=== PATIENT | female | born 1995 | race African-American/Black ===

== ENCOUNTER 2018-02-22 08:14 | Emergency (ER) | payer OTHER, SELFPAY ==
[2018-02-22 09:01] LABS: #Basophils 0.1 thou/uL (0.0-0.2); #Eosinphils 0.1 thou/uL (0.0-0.7); #Lymphocytes 1.6 thou/uL (1.20-3.40); #Monocytes 0.7 thou/uL (0.11-0.59); #Neutrophils 6.7 thou/uL (1.40-6.50); %Basophils 0.6 % (0.0-1.0); %Eosinophils 0.9 % (0.0-10.0); %Monocytes 7.7 % (0.0-10.0); %Neutrophils 72.8 % (42.0-75.0); Hemoglobin 13.2 g/dL (12.0-16.0); Mean Corpuscular HGB CONC 36.2 g/dL (32.0-36.0); Mean Corpuscular Hemoglobin 30.2 pg (27.0-31.0); Mean Corpuscular Volume 83.5 fl (81.0-99.0); Mean Platelet Volume 7.8 fL (7.4-10.4); Platelet Count 239 thou/uL (130-400); RBC Distribution Width 12.5 % (11.5-14.5); Red Blood Cell (RBC) Count 4.36 mill/uL (4.20-5.40); White Blood Cell (WBC) Count 9.1 thou/uL (4.8-10.8)
--- NOTE | 2018-02-22 10:00 | ULT ---
ULTRASOUND EARLY OBSTETRICAL: DATE: 02/22/18. HISTORY: A 22-year-old female with 1st trimester vaginal bleeding. FINDINGS: Uterus: 10 x 6.5 x 6.5 cm. Right ovary: 4.5 x 3 x 2.5 cm. Left ovary: 3 x 2 x 2 cm. Blood flow is demonstrated into both ovaries by Doppler. 1.5 x 1.5 x 1 cm dominant follicle in right ovary. This may or may not be a collapsed corpus luteum cyst. Intrauterine gestational sac containing an embryonic pole with crown-rump length of 1.2 cm, correspon ding to 7w 2d gestational age. Yolk sac is visualized adjacent to it. heart rate 165 b.p.m. No evidence of subchorionic hemorrhage. No free fluid in the cul-de-sac. IMPRESSION: 1. Live 1st trimester intrauterine gestation estimated to be 7 weeks 4 days gestational age. 2. No evidence of complications. POS: [facility]
[2018-02-22 10:57] LABS: Bilirubin Negative (Negative); Blood, Urine Negative (Negative); Clarity CLEAR (Clear); Glucose, Urine (Dipstick) Negative (Negative); Leukocyte Moderate (Negative); Nitrite Negative (Negative); Protein, Urine (Dipstick) Negative (Neg-Trace); Specific Gravity, Urine 1.021 (1.002-1.036); Urobilinogen 0.2 mg/dL (0.2-1.0); pH, Urine 6.5 (5.0-9.0)
[2018-02-22 10:59] LABS: Bacteria/HPF Rare-Few HPF (None Seen); Hyaline Casts/LPF 0-3 HYALINE CAST LPF (0-3 Hyaline); Pathc Cast-AUWi Flag 0.14 (0-2.49); RBC/HPF 0-3 HPF (0-3)
[2018-02-24 00:42] LABS: Chlamydia by PCR DETECTED (NotDetected); GC by PCR Not Detected (NotDetected)
== END 2018-02-22 11:45 | disposition home or self-care (01) ==
LOC: ERS 08:14
DX: O20.0 Threatened abortion (principal); Z3A.01 Less than 8 weeks gestation of pregnancy
CPT/HCPCS: 36415; 76815; 81003; 81015; 84702; 85025; 86900; 86901; 87086; 87480; 87491; 87510; 87591; 87660

== ENCOUNTER 2018-08-03 16:01 | Inpatient (IN) | payer OTHER ==
[2018-08-03] MEDS ORDERED: Betamet Acet/Betamet Na Ph 30 MG/5 ML VIAL ONE (16:59)
[2018-08-03] MEDS ORDERED: Magnesium Sulfate 20 gm/500 ml 20 GM/500 ML BAG ONE (16:59)
[2018-08-03] MEDS ORDERED: Acetaminophen 500 MG TAB PO PRN (17:05)
[2018-08-03] MEDS ORDERED: Ondansetron HCl/PF 4 MG/2 ML Vial IVP PRN (17:05)
[2018-08-03] MEDS ORDERED: Promethazine HCl 25 MG/ML VIAL IM PRN (17:05)
[2018-08-03] MEDS ORDERED: Ibuprofen 800 MG TAB PO PRN (17:05)
[2018-08-03] MEDS ORDERED: NS / Oxytocin 40 units/1000ml 1,000 ML IV PRN (17:05)
[2018-08-03] MEDS ORDERED: Calcium Gluc 4.6 MEQ/10 ML (100 MG/ML) SLOW IVP PRN (17:05)
[2018-08-03] MEDS ORDERED: Lidocaine 1% (PF) 30 ML VIAL SC PRN (17:05)
[2018-08-03] MEDS ORDERED: Magnesium Sulfate 20 GM/WATER 500 ML BAG IVPB SCH (17:15)
[2018-08-03] MEDS ORDERED: Azithromycin 500 MG in Sodium Chloride 0.9% 250 ML 250 ML IVPB SCH (17:15)
[2018-08-03] MEDS ORDERED: Magnesium Sulfate 20 gm/500 ml 20 GM/500 ML BAG IVPB SCH (17:15)
[2018-08-03] MEDS ORDERED: Lactated Ringer's 1,000 ML IV SCH (17:15)
--- NOTE | 2018-08-03 17:19 | PDOC.LDHP ---
Labor and Delivery H&P Chief complaint: contractions HPI: This is a 23 y/o F @ 31.2 WGA by 16.0 wk US who presents due to ctx. She reports the ctx started about 3 hours prior to arrival and have gotten progressively more painful. They are about every 3-4 minutes and a 8/10 in pain. She denies any vaginal bleeding, vaginal d/c, LOF, dysuria, H/A, vision changes, RUQ pain, swelling. She reports good movement. Her PCP is at [facility], but she reports that she has only seen him once during her . She has not received any progesterone during this . Current gestational age (weeks): 31 (31w2d) Due date: 10/03/18 Dating criteria: second trimester ultrasound Grav: 5 Para: 4 ([id number]) OB History Details: 1. Term 2. Term 3. Term 4. at 34 wks Current complications: other (Poor care during this due to pt only going to one appt and getting one US.) Abnormal US findings: Yes (Complete previa on 16 and 18 wk US) Past Medical History: None Current medications: pre-bree vitamins Previous surgical history: none Social history: none - Physical Exam Vital signs reviewed and normal: yes General: NAD Heart: RRR Lungs: CTAB Abdomen: gravid Extremeties: no edema FHT: category 1, variability present [place] contractions every: 2-4 minutes - Vaginal Exam cm dilated: 2 Effacement: 50% Station: -3 - OB Labs Blood type: unknown RH: unknown Antibody Screen: unknown HIV: unknown RPR: unknown HEPSAg: unknown 1 hour GCT: unknown GBS: unknown - Assessment L&D Assessment: labor 23 y/o F @ 31w2d by 16w0d US presents in PTL h/o delivery and poor f/u SVE 2/50/-3 painful ctx q2-4 minutes - Plan Plan: admit to L&D -: -Magnesium for neuroprotection -Ampicillin and Azithromycin for GBS ppx with GBS status unknown and labor -Celestone 12mg IM x2 doses 24 hours apart -Monitor FHT -Check GBS -UDS -Ultrasound for placenta location, position, and growth -Check all labs due to no lab results -FFN not performed due to intercourse within last 24 hours <Megan Ulrich - Last Filed: 08/03/18 17:16> <Donis Clement - Last Filed: 08/03/18 18:22> Allergies/Adverse Reactions: Allergies Allergy/AdvReac Type Severity Reaction Status Date / Time No Known Allergies Allergy Verified 06/09/16 12:10 Attending Addendum - Attending Addendum Date/Time: 08/03/18 559 I personally evaluated the patient and discussed the management with Dr. Ulrich. 23 yo BF with h/o delivery here with regular UCs and cervical dilation c/w PTL. Limited PNC at [facility]. Will start steroids for FLM and Mg for neuroprotection along with ABX for GBS and observe closely. I agree with the History, Examination, Assessment and Plan documented above. <Donis Clement - Last Filed: 08/03/18 18:22>
[2018-08-03 17:21] VITALS: BMI 23.7
[2018-08-03 17:29] LABS: Hemoglobin 12.4 g/dL (12.0-16.0); Mean Corpuscular HGB CONC 35.6 g/dL (32.0-36.0); Mean Corpuscular Hemoglobin 28.4 pg (27.0-31.0); Mean Corpuscular Volume 79.8 fL (78.0-98.0); Mean Platelet Volume 7.3 fL (7.4-10.4); Platelet Count 209 thou/uL (130-400); RBC Distribution Width 12.3 % (11.5-14.5); Red Blood Cell (RBC) Count 4.34 mill/uL (4.20-5.40); White Blood Cell (WBC) Count 13.2 thou/uL (4.8-10.8)
[2018-08-03] MEDS ORDERED: Butorphanol Tartrate 1 MG/ML VIAL SLOW IVP PRN (17:36)
[2018-08-03] MEDS: Lactated Ringer's 1,000 ML IV SCH (17:39)
[2018-08-03] MEDS: Ampicillin 2 GM in Sodium Chloride 0.9% 100 ML IVPB SCH ×2 (17:45→23:52)
--- NOTE | 2018-08-03 17:50 | PDOC.EVN ---
Event Note - Event Note Event Note: Watched ultrasound Preliminary results: No previa - placenta R lateral Vertex position Growth consistent with stated gestational age Awaiting lab results at this time. Continue current management <Megan Ulrich - Last Filed: 08/03/18 17:48> Attending Addendum - Attending Addendum Date/Time: 08/03/181822 I personally evaluated the patient and discussed the management with Dr. Ulrich. USG shows vtx, biometry c/w with known dating criteria. No evidence of placenta previa. I agree with the Assessment and Plan documented above. <Donis Clement - Last Filed: 08/03/18 18:25>
[2018-08-03 17:51] LABS: Amphetamine Detected (NotDetected); Barbiturates Screen Not Detected (NotDetected); Benzodiazepine Screen Not Detected (NotDetected); Cocaine Metabolite Screen Not Detected (NotDetected); Medtox Control Line Valid? VALID (VALID); Medtox Reader # READER 4; Methadone Not Detected (NotDetected); Methamphetamine Detected (NotDetected); Opiate Screen Not Detected (NotDetected); Oxycodone Screen Not Detected (NotDetected); Phencyclidine (PCP) Not Detected (NotDetected); THC/Cannabinoid Screen Not Detected (NotDetected); Tricyclic Screen Not Detected (NotDetected)
[2018-08-03 17:53] LABS: HBSAg Index 0.25 S/CO (0-0.99); HIV (1/2) Antibody/Antigen Non-Reactive (NonReactive); HIV 1/2 INDEX 0.09 S/CO (<1.00); Hep B Surf Ag Non-Reactive S/CO (NonReactive); Syphilis Antibody Nonreactive (Nonreactive); Syphilis Antibody Index 0.06 S/CO (<1.00 Non-Reactive)
[2018-08-03 17:59] LABS: Bilirubin Negative (Negative); Blood, Urine Negative (Negative); Clarity CLEAR (Clear); Glucose, Urine (Dipstick) Negative (Negative); Leukocyte Negative (Negative); Nitrite Negative (Negative); Protein, Urine (Dipstick) Negative (Neg-Trace)
[2018-08-03 18:01] LABS: Bacteria/HPF None Seen HPF (None Seen); Hyaline Casts/LPF 0-3 HYALINE CAST LPF (0-3 Hyaline); Pathc Cast-AUWi Flag 0.14 (0-2.49); RBC/HPF 0-3 HPF (0-3); Squamous Epithelial 0-3 HPF (0-3); WBC/HPF None Seen HPF (0-3)
[2018-08-03] MEDS ORDERED: Fentanyl 100 MCG/2 ML VIAL SLOW IVP SCH (18:45)
[2018-08-03] MEDS ORDERED: Promethazine HCl 25 MG/ML VIAL IM/IV SCH (18:45)
--- NOTE | 2018-08-03 18:48 | PDOC.LDPN ---
Labor & Delivery Progress Note - Subjective Subjective: painful contractions - Objective Vital signs reviewed and normal: yes General: NAD Uterine fundus: palpable contractions SVE: by Nurse @ 1840 Dilation: 3 Effacement: 50% Station: -1 FHT: category 1, variability present [place] contractions every: 2 minutes - Assessment (1) labor in third trimester Code(s): O60.03 - LABOR WITHOUT DELIVERY, THIRD TRIMESTER Current Visit: Yes Status: Acute Qualifiers: Fetus number: single or unspecified fetus Comment: 23 y/o @ 33w2d with concern for labor SVE 50/-1 @ 1840 - changed from prior check Ctx q2min Patient having significant pain, not relieved with stadol -Give 25mcg fentanyl and 12.5mg phenergan -Continue to monitor -LR @ 125 -Continue mag and abx -s/p one dose of celestone Plan: continue plan of care <Megan Ulrich - Last Filed: 08/03/18 18:45> Attending Addendum - Attending Addendum Date/Time: 08/03/181943 I personally evaluated the patient and discussed the management with Dr. Ulrich. I agree with the Assessment and Plan documented above. <Donis Clement - Last Filed: 08/03/18 19:44>
--- NOTE | 2018-08-03 19:27 | ULT ---
LIMITED OBSTETRICAL ULTRASOUND: 08/03/18 HISTORY: Evaluate placental location, position, and growth. TECHNIQUE: Multiplanar de la torre scale sonographic imaging of the gravid uterus obtained. FINDINGS: There is a single intrauterine gestation present demonstrating a vertex presentation. The placenta is located to the right of midline with no evidence for abruption or previa. A single in trauterine gestation is noted with a heart rate of 157 beats per minute. Amniotic fluid index is 12.5 cm. BIOMETRY: BPD 7.9 cm 31 weeks, 4 days HC 28.7 cm 31 weeks, 4 days AC 26.7 cm 30 weeks, 6 days FL 5.8 cm 30 weeks, 1 day Average age based on ultrasound is 31 weeks, 0 days. Estimated date of delivery is 10/05/18. Estimated weight is 1634 grams plus/minus 242 grams. IMPRESSION: Single intrauterine gestation as detailed above. POS: [facility]
--- NOTE | 2018-08-03 19:42 | PDOC.EVN ---
Event Note - Event Note Event Note: Labs reviewed: UDS positive for methamphetamines and amphetamines Hemagram, HIV, RPR, UA, Hep B all WNL. <Megan Ulrich - Last Filed: 08/03/18 19:40> Attending Addendum - Attending Addendum Date/Time: 08/03/181944 I have personally discussed with , noted. <Donis Clement - Last Filed: 08/03/18 19:46>
[2018-08-03] MEDS ORDERED: Meperidine HCl/PF 25 MG/ML VIAL SLOW IVP PRN (22:11)
[2018-08-03] MEDS ORDERED: Promethazine HCl 25 MG/ML VIAL SLOW IVP SCH (22:15)
--- NOTE | 2018-08-03 22:15 | PDOC.EVN ---
Event Note - Event Note Event Note: Patient complaining of ctx pain 06/07. Having ctx q1-2 minutes Patient declines any stadol or fentanyl because they did not help with her BP and they made her feel too loopy. SVE @ 2049 unchanged at /-1 -Will give demerol and phenergan <Megan Ulrich - Last Filed: 08/03/18 22:13> Attending Addendum - Attending Addendum Date/Time: 08/03/18 3815 I personally evaluated the patient and discussed the management with Dr. Ulrich. I agree with the Assessment and Plan. <Donis Clement - Last Filed: 08/03/18 23:43>
--- NOTE | 2018-08-04 00:15 | PDOC.EVN ---
Event Note - Event Note Event Note: Was called by nurse due to patient's complaints about pain. Patient reports that her pain has not been relieved at all with stadol, demerol , or fentanyl. The patient and her family are frustrated due to her lack of pain relief and are requesting an epidural. Due to refractory pain will start epidural in patient to allow better pain relief and allow her to rest. She has continued emilio q2min <Megan Ulrich - Last Filed: 08/04/18 00:13> Attending Addendum - Attending Addendum Date/Time: 08/04/18 0151 I personally evaluated the patient and discussed the management with Dr. Ulrich. I agree with the Assessment and Plan documented above. <Donis Clement - Last Filed: 08/04/18 01:52>
[2018-08-04] MEDS ORDERED: DISCONTINUE ALL PREVIOUS NARCOTICS FS SCH (00:30)
[2018-08-04] MEDS: Bupivacaine 0.5% 20 ML, fentaNYL Citrate/PF 400 MCG in Sodium Chloride 0.9% 72 ML EPIDURAL SCH ×4 (01:00→23:15)
[2018-08-04] MEDS ORDERED: ePHEDrine/0.9% NaCl/PF SYRINGE 50 mg/10 ml SLOW IVP PRN (01:04)
[2018-08-04] MEDS ORDERED: Promethazine HCl 25 MG/ML VIAL IM PRN (01:04)
[2018-08-04] MEDS ORDERED: Lactated Ringer's 500 ML IV PRN (01:04)
[2018-08-04] MEDS ORDERED: Naloxone HCl 0.4 mg/ml Vial IVP PRN ×2 (01:04)
[2018-08-04] MEDS ORDERED: Acetaminophen 325 MG TAB PO PRN (01:04)
[2018-08-04] MEDS ORDERED: Ondansetron HCl/PF 4 MG/2 ML Vial IVP PRN (01:04)
[2018-08-04] MEDS ORDERED: diphenhydrAMINE 50 MG/ML VIAL IVP PRN (01:04)
[2018-08-04] MEDS ORDERED: Eucerin (Mineral Oil/Petrolatum,White) 30 gm Jar TOP PRN (01:04)
[2018-08-04] MEDS: Lactated Ringer's 1,000 ML IV SCH ×3 (01:14→18:33)
[2018-08-04] MEDS ORDERED: fentaNYL Citrate/PF 400 MCG, Bupivacaine 0.5% 20 ML in Sodium Chloride 0.9% 72 ML EPIDURAL SCH (01:15)
[2018-08-04] MEDS ORDERED: Communication Order-Pharmacy FS SCH (01:15)
[2018-08-04] MEDS: Betamet Acet/Betamet Na Ph 30 MG/5 ML VIAL IM SCH ×3 (05:08→18:32)
[2018-08-04] MEDS: Ampicillin 2 GM in Sodium Chloride 0.9% 100 ML IVPB SCH ×4 (06:11→23:28)
[2018-08-04] MEDS ORDERED: Magnesium Sulfate 20 gm/500 ml 20 GM/500 ML BAG IVPB SCH (07:13)
--- NOTE | 2018-08-04 07:15 | PDOC.EVN ---
Event Note - Event Note Event Note: Comfortable with epidural. VSS AF SVE now /0 vtx, BOWI. UCs q 2-4 min. 2nd dose of steroids given at 5a. Will decrease Mg to 1 gm/hr and observe.
--- NOTE | 2018-08-04 09:52 | PDOC.EVN ---
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 Presumed EGA 31 weeks 2 days. Sono with EFW 1634 grams, vertex, normal fluid. HX reviewed with Dr Clement I have out in a NICU consult for threatened PTL. Ordered vag GC/chl. CHETNA in place for pain control. If no further labor after 24 hours observation, will remove epidural and do qureshi expectanat management. In L&D for now. Pos UDS reviewed
--- NOTE | 2018-08-04 14:08 | PDOC.EVN ---
Event Note - Event Note Event Note: 1400: L&D: Still wiith contractions on toco..palpable. Last exam was at 0930 this AM=3-4. WE will recheck CX now
--- NOTE | 2018-08-04 15:26 | PDOC.EVN ---
Event Note - Event Note Event Note: L&D: LDR1 Patient seen at bedside Contractions are still every 1-2 minutes, but FHR still Cat 1...no Vag Bleed or ROM Cannot give terb as maternal HR at 120. CHETNA to adjust/rebolus by anesthesia. I do not suspect abruption currently but contraction pattern likely due to laboring process. If pulse decrease under 100, consider Terb.
[2018-08-04] MEDS ORDERED: Lidocaine HCl/Epinephrine 5 ML AMPUL IJ ONE (15:42)
--- NOTE | 2018-08-04 22:36 | PDOC.EVN ---
Event Note - Event Note Event Note: Exam now 4cm.
[2018-08-05] MEDS: Lactated Ringer's 1,000 ML IV SCH (01:29)
--- NOTE | 2018-08-05 05:23 | PDOC.EVN ---
Event Note - Event Note Event Note: Will stop Mag so4 as steroids now given and no cervical change. Will stop epidural despite contractions if no change at 0800.
[2018-08-05] MEDS: Ampicillin 2 GM in Sodium Chloride 0.9% 100 ML IVPB SCH ×2 (07:16→12:46)
--- NOTE | 2018-08-05 07:24 | PDOC.LDPN ---
Labor & Delivery Progress Note - Subjective Subjective: comfortable - Objective Vital signs reviewed and normal: yes General: resting Uterine fundus: non tender SVE: 4:44 Dilation: 4 Effacement: 75% Station: -1 FHT: category 1, variability present [place] contractions every: q3 min - Assessment (1) labor in third trimester Code(s): O60.03 - LABOR WITHOUT DELIVERY, THIRD TRIMESTER Current Visit: Yes Status: Acute Qualifiers: Fetus number: single or unspecified fetus Comment: 23 y/o @ 33w4d with concern for labor SVE /-1 @ 04:44 on 08/05 Ctx q3min Continue to monitor LR @ 125 D/C'd MgSO4 s/p two doses of celestone Stop epidural despite contractions if no change at 0800 (2) Cannabis abuse Code(s): F12.10 - CANNABIS ABUSE, UNCOMPLICATED Current Visit: No Status: Acute Plan: continue plan of care
[2018-08-05] MEDS: Bupivacaine 0.5% 20 ML, fentaNYL Citrate/PF 400 MCG in Sodium Chloride 0.9% 72 ML EPIDURAL SCH ×2 (07:35→15:03)
--- NOTE | 2018-08-05 11:16 | PDOC.LDPN ---
Labor & Delivery Progress Note - Subjective Subjective: comfortable - Objective Abnormal vital signs: HR 109 General: NAD, resting Uterine fundus: non tender SVE: 11:10 by Nurse Dilation: 5 Effacement: 75% Station: -2 FHT: category 1, variability present [place] contractions every: q1-2 min - Assessment (1) labor in third trimester Code(s): O60.03 - LABOR WITHOUT DELIVERY, THIRD TRIMESTER Current Visit: Yes Status: Acute Qualifiers: Fetus number: single or unspecified fetus Comment: 23 y/o @ 33w4d presents with labor SVE 5/75/-2 @ 11:10 on 08/05 by nurse Ctx q1-2min Continue to monitor LR @ 125 D/C'd MgSO4 s/p two doses of celestone Restarted epidural; patient painfully emilio q1-2 minutes Expectant management (2) Cannabis abuse Code(s): F12.10 - CANNABIS ABUSE, UNCOMPLICATED Current Visit: No Status: Acute Plan: continue plan of care
[2018-08-05] MEDS ORDERED: Bupivacaine/Epinephrine 0.25% 30 ML VIAL ONE (12:00)
[2018-08-05] MEDS ORDERED: Dextrose 5%-Lactated Ringers 1,000 ML IV SCH (12:15)
--- NOTE | 2018-08-05 12:29 | PDOC.EVN ---
Event Note - Event Note Event Note: Tachysystole noted at approximately 12:10 AM. Went in to evaluate patient. She was resting comfortably on her left side. Her abdomen was not firm to palpation. No vaginal bleeding. HR 114 BP 129/82 RR 16 Cervical check /-[address] De La Paz Will order urgent limited OB u/s to evaluate placenta. Concern for abruption. Will change LR to D5 LR @ 125 ml/hr Will order CBC and fibrinogen
[2018-08-05 12:39] LABS: #Monocytes 0.9 thou/uL (0.11-0.59); #Neutrophils 8.3 thou/uL (1.40-6.50); %Basophils 0.2 % (0.0-1.0); %Eosinophils 0.3 % (0.0-10.0); %Lymphocytes 17.7 % (21.0-51.0); %Monocytes 7.7 % (0.0-10.0); %Neutrophils 74.2 % (42.0-75.0); Hemoglobin 10.8 g/dL (12.0-16.0); Mean Corpuscular HGB CONC 35.5 g/dL (32.0-36.0); Mean Corpuscular Hemoglobin 28.5 pg (27.0-31.0); Mean Corpuscular Volume 80.5 fL (78.0-98.0); Mean Platelet Volume 6.7 fL (7.4-10.4); Platelet Count 188 thou/uL (130-400); RBC Distribution Width 12.2 % (11.5-14.5); Red Blood Cell (RBC) Count 3.79 mill/uL (4.20-5.40); White Blood Cell (WBC) Count 11.1 thou/uL (4.8-10.8)
--- NOTE | 2018-08-05 12:56 | PDOC.EVN ---
Event Note - Event Note Event Note: U/S did not show any obvious placental hemorrhage or hematoma Fibrinogen low in at 288 CBC stable Will order KB test
[2018-08-05 13:56] LABS: ALT (SGPT) 9 U/L (8-55); AST (SGOT) 22 U/L (5-34); Albumin 3.4 g/dL (3.5-5.0); Alkaline Phosphatase 80 U/L (40-150); Anion Gap 12 mmol/L (10-20); BUN (Urea Nitrogen) 8 mg/dL (7.0-18.7); Bilirubin, Total 0.4 mg/dL (0.2-1.2); Calc. Creatinine Clearance 153 mL/min (70-130); Calcium 8.4 mg/dL (7.8-10.44); Carbon Dioxide 22 mmol/L (22-29); Chloride 106 mmol/L (98-107); Estimated GFR-MDRD Greater than 90; Glucose 95 mg/dL (70-105); Potassium 3.9 mmol/L (3.5-5.1); Protein, Total 6.4 g/dL (6.0-8.3); Sodium 136 mmol/L (136-145)
--- NOTE | 2018-08-05 14:08 | PDOC.EVN ---
Event Note - Event Note Event Note: CMP nml. Still awaiting KB test.
--- NOTE | 2018-08-05 14:21 | ULT ---
LIMITED OBSTETRICAL ULTRASOUND: DATE: 08/05/2018. COMPARISON: 08/03/2018. History Evaluate placenta, evaluate for placental abruption. TECHNIQUE: Multiplanar de la torre scale sonographic imaging of the gravid uterus obtained. FINDINGS: There is a single intrauterine gestation present demonstrating a vertex presentation. heart ra te is 124 b.p.m. The placenta is located posteriorly. No evidence for previa or abruption is noted. The Doppler sign al intensity at the junction of the placenta and the uterus appears normal. Amniotic fluid index is 8.7 cm. IMPRESSION: Single intrauterine gestation demonstrating a heart rate of 124 b.p.m. Amniotic fluid index is 8.7 cm. No sonographic evidence of placental abruption is apparent POS: [facility]
[2018-08-05 22:51] LABS: Chlamydia by PCR Not Detected (NotDetected); GC by PCR Not Detected (NotDetected)
--- NOTE | 2018-08-06 07:43 | PRG ---
DATE OF SERVICE: 08/05/2018 HISTORY OF PRESENT ILLNESS: The patient is a 23-year-old female with a history of one delivery at 34 weeks who was admitted to the hospital on 08/03/2018 for labor after having intercourse. The patient was 2 cm and 50%, dilated at that time. The patient has undergone 48 hours of magnesium for neuro protection and tocolysis during steroid administration. This morning , magnesium was turned off and cervical check per nursing staff progressed from 4, recorded last night to 4, then 5 this morning. The patient continued to have contractions. Epidural, which initially was discontinued was restarted as persistent reporting painful contractions. Upon my cervical check at noon, the patient was 3 cm, 75% effaced, -2 station, posterior. Cervix is firm and did not feel excessively labored. To the course of the day, the patient continued to have visible uterine contractions every 2-3 minutes; however, appeared very unusual and their pattern more triangular persistently this evening around 5:00 , I talked to the patient who has become very irritated and irritable about the lack of clarity and what is occurring as the patient has been given various different cervical checks. I have explained to the patient that a big picture is over the last 2 days she has not had her baby, which was a good thing that she appears to be not changing her cervix significantly. Given the overall picture during the course of the day various testing was performed to evaluate for various concerns. One, with her contractions during a period of time every 1 minute without cervical change, there was some concern perhaps the patient was developing an abruption that was concealed. Repeat ultrasound of placenta did not show any obvious subplacental hematomas. Placenta was homogeneous in its appearance and was unremarkable. Her KUB is pending. She did have fibrinogen of 288, which was lower than I had expected, and had a CMP all within normal limits. Sodium of 136, potassium 3.9, BUN of 8, creatinine 0.6, calcium of 8.4, AST of 22, ALT of 9. Her GBS culture is also finalized as negative. During the course of the day, the patient was allowed to eat. IV fluids were changed to D5 in effort to provide energy and nutrients to the patient as she has been on basically ice and water for the last 2 days. This evening again the patient is reporting significant frustration with the lack of progress in her labor process. We did make it clear to her that at this point, there is no indication for me to augment her labor. We did offer a plan to turn off the epidural and reassess the locations of her pain. Pt stating she will be discharging herself. She has called her mom who has come. We reviewed the hospital stay and reviewed the plan I have recommended (to d/c epidural , stay the night in and if no change by morning pt can be discharged home. Mother deferred the decision to the patient who has again stated she will be going home. She did agree to have her cervix checked again. sve /- 3. Epidural was pulled. Pt left AMA. MONICO
== END 2018-08-05 19:40 | disposition left against medical advice (07) | DRG 832 ==
LOC: L&D/OP 16:01 → L&D 17:15
PROVIDERS: ADMIT Obstetrics & Gynecology; ATTEND Obstetrics & Gynecology
DX: O60.03 Preterm labor without delivery, third trimester (principal); O99.323 Drug use complicating pregnancy, third trimester; F12.10 Cannabis abuse, uncomplicated; Z3A.31 31 weeks gestation of pregnancy
CPT/HCPCS: 36415; 51702; 76815; 80053; 80306; 81001; 85025; 85027; 85384; 85460; 86762; 86780; 86850; 86900; 86901; 87081; 87340; 87389; 87491; 87591; 99285; J0290; J0456; J0595; J0702; J2175; J2550; J3010; J3475; J3490; J7050

== ENCOUNTER 2018-08-29 19:05 | Day surgery (SDC) | payer OTHER ==
[2018-08-29 19:42] VITALS: BMI 31.9
[2018-08-29 20:32] LABS: Amnisure Internal Control QC ACCEPTABLE (ACCEPTABLE)
[2018-08-29 20:36] LABS: Amnisure Test No Membranes Rupture (No Rupture)
--- NOTE | 2018-08-30 07:40 | PRG ---
DATE OF SERVICE: 08/29/2018 OB ER ENCOUNTER PRIMARY OB: Dr. Víctor White. CHIEF COMPLAINT: Leakage of fluid. HISTORY OF PRESENT ILLNESS: Patient is a 23-year-old G5, P4 female with an intrauterine at 34 weeks and 3 days who presents today with complaints of leakage of fluid. Patient reports that satinder sanchez woke up from a nap and found that she was wet and thought she did peed on herself. She went to go take a shower and felt that she was still leaking fluid and came for evaluation. Patient reports antonio t she has been having some cramping and reports continued ligament pain persistent from her previous admission about 4 weeks ago. Patient denies fever, fall, headache, chest pain, shortness of breath, nausea, vomiting. She reports diarrhea. Denies constipation. Denies vaginal bleeding, denies urina ry urgency or frequency. PAST MEDICAL HISTORY: Negative. FAMILY HISTORY: Negative. SOCIAL HISTORY: Denies drug, alcohol, or tobacco use. OB HISTORY: She has a history of delivery at 34 weeks and 3 term deliveries. OB LABS: Unavailable at time of dictation. REVIEW OF SYSTEMS: Per HPI. PHYSICAL EXAMINATION: VITAL SIGNS: Blood pressure 131/85, heart rate of 88, respiratory rate 16, satting 96% on room air, temperature 98.7. GENERAL: She appears to be in no acute distress. She is alert and oriented, cooperative and pleasan t to interact with. HEENT: Normocephalic, atraumatic. CHEST: Clear to auscultation bilaterally. CARDIOVASCULAR: Heart has regular rate and rhythm. ABDOMEN: Gravid and soft and nontender. EXTREMITIES: Nontender, nonedematous. PELVIC: Vulva is without masses, lesions, or erythema. Vagina is moist with minimal discharge. Cer vix is visibly closed on cervical exam per nursing staff. She is 2, 50, and -3 station, which is unc hanged from 4 weeks ago. heart tracing demonstrates a fetus with a baseline in the 130s with moderate long-term variabil ity, positive accelerations, no decelerations. Patient showing irritability on the monitor. CARPENTRY FOREMAN-3 wa s collected and found to be positive for bacterial vaginosis. AmniSure is negative. ASSESSMENT AND PLAN: Patient is a 23-year-old female with an intrauterine at 34 weeks and 3 days, who was found not to have any evidence of leakage of fluid. Patient has been given results of evaluation for possible rupture of membranes and given her reassurance that there is no evidence a t this time. Patient is comfortable being discharged to home without the results of her CARPENTRY FOREMAN-3 testing . We will contact her. She will contact us once those results become available. The patient has an appointment with Dr. White on the or 03 of September, which we have encouraged that she keep.
--- NOTE | 2018-08-30 08:20 | PDOC.EVN ---
Event Note - Event Note Event Note: 08/30/18 Lab check post discharge: I contacted the patient via the phone number on file. VP3 result of BV reviewed with her. She requested RX. I called in a 7 day RX of flagyl 500mg o BID X 7 days to [facility] [address]
== END 2018-08-29 21:05 ==
LOC: L&D/OP 19:05
PROVIDERS: ATTEND Obstetrics & Gynecology
DX: O42.913 Preterm premature rupture of membranes, unspecified as to length of time between rupture and onset of labor, third trimester (principal); Z3A.34 34 weeks gestation of pregnancy
CPT/HCPCS: 84112; 87480; 87510; 87660; 99285

== ENCOUNTER 2018-09-13 08:07 | Inpatient (IN) | payer OTHER ==
--- NOTE | 2018-09-13 09:02 | PDOC.LDHP ---
Labor and Delivery H&P HPI: Patient of Dr White Time of eval 0900 on 09/13/18 Triage CC: contractiions, clear dsch (not like ROM), headache for 1 wwek, diarrhea HPI: 23 yo at 36 weeks 2 days with possible contractions since 0200, every 5-10 minutes or so. No VB, no LOF but states some "clear dsch". Good FM. Also with one week HX "[place]", no visual changes, no RUQ pain, some nausea and diarrhea. No recent trauma. Sees [facility], but had another OB provider prior to that. HX one delivery at 34 weeks, the others she stated were 36 weeks, but record states early term. ROS: good FM, no VB, no recet trauma. Other ROS as per HPI Current gestational age (weeks): 36 (2 days) Dating criteria: last menstrual period Grav: 5 Para: 4 OB History Details: All SVDs, one documented at 34 weeks, 2015 Current complications: none Abnormal US findings: No Current medications: pre-bree vitamins, other ([place] flagyl for BV earlier in the month) Allergies/Adverse Reactions: Allergies Allergy/AdvReac Type Severity Reaction Status Date / Time No Known Allergies Allergy Verified 09/13/18 08:45 Social history: none - Physical Exam Vital signs reviewed and normal: yes (125/80 93pulse 18RR Temp 99.2) Heart: RRR Lungs: CTAB Abdomen: gravid (size appropriate) Extremeties: no edema FHT: category 1 (Baseline 120s, accels), variability present [place] contractions every: every 3-6 - Assessment Threatened PTL at 36 weeks 2 days (late ) also with nonspecific GI sxs, normotensive currently. Sxs possible discomforts of in addition to contractions. Unknown GBS status. - Plan Plan: observation in L&D, other (1. Check CBC and CMP 2. Labor obs 3. HX not C/ W ROM but I will screen with first, and if positive...will sterile spec (no gross evidence LOF); 4. If suspect early PTL will give steroids as under 36 weeks and 6 days)
[2018-09-13] MEDS ORDERED: Betamet Acet/Betamet Na Ph 30 MG/5 ML VIAL ONE (09:24)
--- NOTE | 2018-09-13 09:31 | PDOC.EVN ---
Event Note - Event Note Event Note: Additioanl HX info and Physical exam: I reviewed past visits here. Pt was positive for ampetamines/methampetamines Aug 03, 2018. No GBS on file here but [facility]'s office will send result via fax. HX steroid administration previously at 31 weeks. EXAM by me: /-1/Ceph/intact Plan: Due to regular CTX every 3 minutes or so, and 4cm with HX PTL in past (and HX drug use), I will admit for PTL: 1. NICU consult 2. Get sono EFW 3. Check GBS result 4. Tox screen 5. case management 6. Steroids, per ACOG: repeat course of steroids indicated if EGA is less than 34 weeks and initial course was greater than 14 days...patient is greater than 34 weeks so rescue not indicated. 7. [facility] aware of his admission
[2018-09-13] MEDS ORDERED: NS / Oxytocin 40 units/1000ml 1,000 ML IV PRN (09:33)
[2018-09-13] MEDS ORDERED: Butorphanol Tartrate 1 MG/ML VIAL SLOW IVP PRN (09:33)
[2018-09-13] MEDS ORDERED: Ondansetron PF 4 MG/2 ML Vial IVP PRN ×3 (09:33→23:28)
[2018-09-13] MEDS ORDERED: Promethazine HCl 25 MG/ML VIAL IM PRN ×3 (09:33→23:28)
[2018-09-13] MEDS ORDERED: Lidocaine 1% (PF) 30 ML VIAL SC PRN (09:33)
[2018-09-13] MEDS ORDERED: Ibuprofen 800 MG TAB PO PRN (09:33)
[2018-09-13] MEDS ORDERED: HYDROcodone/Acetaminophen 5/325 mg Tablet PO PRN ×4 (09:33→23:28)
--- NOTE | 2018-09-13 09:54 | PDOC.EVN ---
Event Note - Event Note Event Note: Steroid use: Patient did receive a redose of celestone IM 12 mg after I left the bedside as we had discussed it in the room. This was prior to my note documenting the ACOG bulletin that redose is mainly indicated for EGA less than 34 weeks. Nonetheless , this redose may serve as "booster" as under 36 weeks and 6 days. U tox ordered as well for HX. I do not suspect she is on any illicit substances at this time.
[2018-09-13] MEDS ORDERED: Betamet Acet/Betamet Na Ph 30 MG/5 ML VIAL IM SCH (10:00)
[2018-09-13] MEDS: Lactated Ringer's 1,000 ML IV SCH (10:05)
[2018-09-13] MEDS ORDERED: Butorphanol Tartrate 1 MG/ML VIAL ONE (10:15)
[2018-09-13 10:40] LABS: #Basophils 0.1 thou/uL (0.0-0.2); #Eosinphils 0.1 thou/uL (0.0-0.7); #Lymphocytes 2.4 thou/uL (1.20-3.40); #Monocytes 0.6 thou/uL (0.11-0.59); #Neutrophils 8.2 thou/uL (1.40-6.50); %Basophils 0.4 % (0.0-1.0); %Eosinophils 0.5 % (0.0-10.0); %Lymphocytes 21.1 % (21.0-51.0); %Monocytes 5.5 % (0.0-10.0); %Neutrophils 72.5 % (42.0-75.0); Hemoglobin 12.4 g/dL (12.0-16.0); Mean Corpuscular HGB CONC 35.3 g/dL (32.0-36.0); Mean Corpuscular Hemoglobin 27.3 pg (27.0-31.0); Mean Corpuscular Volume 77.2 fL (78.0-98.0); Mean Platelet Volume 7.9 fL (7.4-10.4); Platelet Count 202 thou/uL (130-400); RBC Distribution Width 12.8 % (11.5-14.5); Red Blood Cell (RBC) Count 4.54 mill/uL (4.20-5.40); White Blood Cell (WBC) Count 11.4 thou/uL (4.8-10.8)
[2018-09-13 10:56] LABS: ALT (SGPT) 12 U/L (8-55); AST (SGOT) 20 U/L (5-34); Albumin 3.8 g/dL (3.5-5.0); Alkaline Phosphatase 166 U/L (40-150); Anion Gap 14 mmol/L (10-20); BUN (Urea Nitrogen) 6 mg/dL (7.0-18.7); Bilirubin, Total 0.6 mg/dL (0.2-1.2); Calc. Creatinine Clearance 180 mL/min (70-130); Carbon Dioxide 20 mmol/L (22-29); Chloride 105 mmol/L (98-107); Estimated GFR-MDRD Greater than 90; Globulin 3.4 g/dL (2.4-3.5); Glucose 74 mg/dL (70-105); Protein, Total 7.2 g/dL (6.0-8.3); Sodium 135 mmol/L (136-145)
[2018-09-13 11:14] LABS: Syphilis Antibody Nonreactive (Nonreactive); Syphilis Antibody Index 0.05 S/CO (<1.00 Non-Reactive)
[2018-09-13 11:15] LABS: HBSAg Index 0.21 S/CO (0-0.99); HIV (1/2) Antibody/Antigen Non-Reactive (NonReactive); HIV 1/2 INDEX 0.06 S/CO (<1.00); Hep B Surf Ag Non-Reactive S/CO (NonReactive)
[2018-09-13 11:20] LABS: Amphetamine Not Detected (NotDetected); Barbiturates Screen Not Detected (NotDetected); Benzodiazepine Screen Not Detected (NotDetected); Cocaine Metabolite Screen Not Detected (NotDetected); Medtox Control Line Valid? VALID (VALID); Medtox Reader # READER 1; Methadone Not Detected (NotDetected); Methamphetamine Not Detected (NotDetected); Opiate Screen Not Detected (NotDetected); Oxycodone Screen Not Detected (NotDetected); Phencyclidine (PCP) Not Detected (NotDetected); THC/Cannabinoid Screen Not Detected (NotDetected); Tricyclic Screen Not Detected (NotDetected)
--- NOTE | 2018-09-13 12:04 | ULT ---
ULTRASOUND OBSTETRICAL COMPLETE: DATE: 09/13/2018. HISTORY: A 23-year-old female with labor in third trimester at 36 weeks . FINDINGS: number: gotti. lie: cephalic. Maternal cervix: obscured. Placenta: fundal, anterior, and right lateral, with a small posterior component. No placenta previa. Amniotic fluid volume: 15 cm. heart rate: 119 b.p.m. The following anatomy is visualized, with no evidence of anomalies: Head, stomach, kidneys, and urinary bladder. There rest of the anatomy was not evaluated. biometry: Head circumference (HC): 32.6 cm 37 w 0 d Biparietal diameter (BPD): 9.1 cm 37 w 1 d Abdominal circumference (AC): 33.1 cm 37 w 0 d Femur length (FL): 7.3 cm 37 w 2 d Average ultrasound age (AUA): 37 w 1 d Estimated date of delivery (SHANEL): 10/03/2018. Last menstrual period (LMP): 12/31/2017. Gestational age by LMP: 36 w 4 d. Estimated weight (EFW): 3,111 g +/- 460 g (6 lb 14 oz +/- 16 oz). IMPRESSION: 1. Live third trimester intrauterine gestation. 2. Estimated gestational age of 37 weeks, 1 day. 3. lie cephalic. 4. Maternal cervix not visualized, obscured. 5. Amniotic fluid index of 15 cm. JN R POS: [facility]
[2018-09-13] MEDS ORDERED: Fentanyl 4 mcg/Bup 0.1% Cadd 100 ML ONE ×2 (12:30→18:52)
[2018-09-13] MEDS ORDERED: Fentanyl 100 MCG/2 ML VIAL ONE (12:48)
[2018-09-13] MEDS ORDERED: Fentanyl 100 MCG/2 ML VIAL EPIDURAL SCH (13:00)
[2018-09-13] MEDS ORDERED: Naloxone HCl 0.4 mg/ml Vial IVP PRN ×2 (13:36)
[2018-09-13] MEDS ORDERED: diphenhydrAMINE 50 MG/ML VIAL IVP PRN (13:36)
[2018-09-13] MEDS ORDERED: Eucerin (Mineral Oil/Petrolatum,White) 30 gm Jar TOP PRN (13:36)
[2018-09-13] MEDS ORDERED: Lactated Ringer's 500 ML IV PRN (13:36)
[2018-09-13] MEDS ORDERED: ePHEDrine/0.9% NaCl/PF SYRINGE 50 mg/10 ml SLOW IVP PRN (13:36)
[2018-09-13] MEDS ORDERED: Acetaminophen 325 MG TAB PO PRN (13:36)
[2018-09-13] MEDS ORDERED: Fentanyl 4 mcg/Bupivacaine 0.1% Cassette 100 ML EPIDURAL SCH (13:45)
[2018-09-13] MEDS ORDERED: Communication Order-Pharmacy FS SCH (13:45)
[2018-09-13] MEDS ORDERED: Bupivacaine 0.25% HCL 30 ML VIAL ONE (15:00)
--- NOTE | 2018-09-13 15:04 | PDOC.EVN ---
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 Last check was 5 cm. CHETNA in use.
[2018-09-13] MEDS ORDERED: NS w/ Oxytocin 10 units 500 ML ONE (18:23)
[2018-09-13] MEDS ORDERED: Milk Of Magnesia 30 ML UDCUP PO PRN (23:28)
[2018-09-13] MEDS ORDERED: Zolpidem Tartrate 5 MG TAB PO PRN (23:28)
[2018-09-13] MEDS ORDERED: Misoprostol 200 MCG TAB VAG PRN (23:28)
[2018-09-13] MEDS ORDERED: Bisacodyl 10 MG SUPP PR PRN (23:28)
[2018-09-13] MEDS ORDERED: Benzocaine/Menthol 20-0.5% 60 ML CAN TOP PRN (23:28)
[2018-09-13] MEDS ORDERED: NS / Oxytocin 40 units/1000ml 1,000 ML IV SCH (23:28)
[2018-09-13] MEDS ORDERED: diphenhydrAMINE 25 MG CAP PO PRN (23:28)
[2018-09-13] MEDS ORDERED: Preparation H Ointment 28 GM TUBE PR PRN (23:28)
[2018-09-13] MEDS ORDERED: Lanolin Ointment 7 GM TUBE TOP PRN (23:28)
[2018-09-13] MEDS ORDERED: Ibuprofen 800 MG TAB PO SCH (23:45)
[2018-09-13] MEDS ORDERED: Docusate Calcium (SURFAK) 240 MG CAP PO SCH (23:45)
[2018-09-14] MEDS: Lactated Ringer's 1,000 ML IV SCH (02:31)
[2018-09-14 06:22] LABS: Hemoglobin 9.8 g/dL (12.0-16.0); Mean Corpuscular HGB CONC 34.8 g/dL (32.0-36.0); Mean Corpuscular Volume 77.6 fL (78.0-98.0); Mean Platelet Volume 8.1 fL (7.4-10.4); Platelet Count 175 thou/uL (130-400); RBC Distribution Width 12.7 % (11.5-14.5); Red Blood Cell (RBC) Count 3.63 mill/uL (4.20-5.40); White Blood Cell (WBC) Count 16.2 thou/uL (4.8-10.8)
[2018-09-14] MEDS ORDERED: Adacel (T-DAP) 0.5 ML VIAL IM ONE (09:00)
[2018-09-14] MEDS ORDERED: Varicella virus, LIVE 0.5 ML VIAL SC ONE (09:00)
[2018-09-14] MEDS ORDERED: Measles/Mumps/Rubella 10 MCG/0.5 ML VIAL SC ONE (09:00)
[2018-09-14] MEDS ORDERED: Docusate Calcium (SURFAK) 240 MG CAP ONE (09:01)
[2018-09-14] MEDS ORDERED: Prenatal Vitamin 1 TAB ONE (09:01)
[2018-09-14] MEDS ORDERED: Ferrous Sulfate 325 MG TAB ONE (09:17)
[2018-09-14] MEDS: Docusate Calcium (SURFAK) 240 MG CAP PO SCH ×2 (09:30→21:48)
[2018-09-14] MEDS: Prenatal Vitamin 1 TAB PO SCH (09:30)
[2018-09-14] MEDS: Ibuprofen 800 MG TAB PO SCH ×3 (14:01→21:51)
[2018-09-15] MEDS: Ibuprofen 800 MG TAB PO SCH (06:16)
[2018-09-15] MEDS: Prenatal Vitamin 1 TAB PO SCH (09:26)
[2018-09-15] MEDS: Docusate Calcium (SURFAK) 240 MG CAP PO SCH (09:26)
[2018-09-15 10:17] VITALS: BP 108/53; TEMP 98.6
--- NOTE | 2018-09-18 00:02 | DN ---
DATE OF PROCEDURE: 09/17/2018 PREOPERATIVE DIAGNOSIS: Intrauterine at 36 weeks and 4 days with labor. POSTOPERATIVE DIAGNOSIS: Intrauterine at 36 weeks and 4 days with labor. PROCEDURE: Spontaneous vaginal delivery over intact perineum. FINDINGS: Viable male weighing 3065 grams or 6 pounds 12 ounces, Apgars 8 and 9. Quantitativ e blood loss 94 grams. COMPLICATIONS: None. DETAILS OF THE PROCEDURE: The patient presented to [facility] where she was a dmitted to the Labor and Delivery service. The patient underwent a normal and uneventful labor with normal cervical dilatation until she was found to be completely dilated. She was then allowed to pus h and was able to bring the baby down and delivered the baby in a vertex presentation without difficu lties. Once the head delivered in occiput anterior position, the shoulders followed spontaneously al barbara with the rest of the baby's body. Once out the baby's mouth and nose were bulb suctioned. The c ord was clamped and cut and baby was handed to waiting attendants. Cord blood was collected. Gentle Fundal massage was performed and the placenta delivered intact without problems. Hemostasis was ass ured. Quantitative blood loss was calculated. Inspection of the cervix, vaginal vault, and perineum did not reveal any lacerations needing suturing. Once again, hemostasis was within normal limits an d the patient was allowed to recover in the labor and delivery room. Baby went to nursery.
== END 2018-09-15 12:25 | disposition home or self-care (01) | DRG 807 ==
LOC: L&D/OP 08:07 → L&D 13:37 → 3SW 23:59
PROVIDERS: ADMIT Obstetrics & Gynecology; ATTEND Obstetrics & Gynecology
PROC: 10E0XZZ Delivery of Products of Conception, External Approach (ICD-10-PCS; principal; 2018-09-13)
PROC: 10907ZC Drainage of Amniotic Fluid, Therapeutic from Products of Conception, Via Natural or Artificial Opening (ICD-10-PCS; 2018-09-13)
DX: O60.03 Preterm labor without delivery, third trimester (principal); Z37.0 Single live birth; Z3A.36 36 weeks gestation of pregnancy; Z87.59 Personal history of other complications of pregnancy, childbirth and the puerperium; O69.81X0 Labor and delivery complicated by cord around neck, without compression, not applicable or unspecified
CPT/HCPCS: 36415; 51702; 76805; 80053; 80306; 85025; 85027; 86780; 86850; 86900; 86901; 87340; 87389; 99285; J0595; J0702; J2405; J3010; S0020

== ENCOUNTER 2019-01-04 08:08 | Emergency (ER) | payer OTHER ==
[2019-01-04 08:59] LABS: Bilirubin Negative (Negative); Blood, Urine Large (Negative); Clarity TURBID (Clear); Glucose, Urine (Dipstick) Negative (Negative); Leukocyte Large (Negative); Nitrite Positive (Negative); Protein, Urine (Dipstick) 100 mg/dL (Neg-Trace); Specific Gravity, Urine 1.012 (1.002-1.036)
[2019-01-04 09:00] LABS: Pregnancy Test - Urine (BHCG) Negative (Negative); Pregu Control Background? CLEAR/WHITE (CLR/WHITE); Pregu Control Bar Appear? YES (CONTROL BAR); Specific Gravity 1.012 (1.002-1.036)
[2019-01-04 09:02] LABS: Bacteria/HPF None Seen HPF (None Seen); Hyaline Casts/LPF 4-6 HYALINE CAST LPF (0-3 Hyaline); Pathc Cast-AUWi Flag 1.89 (0-2.49)
[2019-01-04 09:04] LABS: Yeast-AUWi Flag 656.9 (0-25.0)
[2019-01-04 09:13] LABS: RBC/HPF 21-50 HPF (0-3)
[2019-01-04 09:14] LABS: Squamous Epithelial 0-3 HPF (0-3); WBC/HPF 21-50 HPF (0-3); Yeast-All Forms None Seen HPF (None Seen)
== END 2019-01-04 08:45 | disposition home or self-care (01) ==
LOC: ERS 08:08
DX: N30.00 Acute cystitis without hematuria (principal)
CPT/HCPCS: 81003; 81015; 81025; 87077; 87086; 87186; 99283

== ENCOUNTER 2019-09-21 02:04 | Inpatient (IN) | payer MEDICAID, OTHER, SELFPAY ==
[2019-09-21 02:47] VITALS: BMI 27.4
[2019-09-21] MEDS ORDERED: hydrALAZINE 20 MG/ML VIAL SLOW IVP PRN ×2 (02:49)
--- NOTE | 2019-09-21 02:53 | PDOC.LDHP ---
Labor and Delivery H&P Chief complaint: contractions, abdominal pain HPI: 24YO w/ no care who presents to L&D with a CC of abdominal pain that has been ongoing since about 2100 the day [employer]. Reports only finding out she was via a home UPT ~1.5 months ago as she has been bleeding monthly all of this . Reports she did the same thing with her last . States "LMP" was August 11 or & lasted ~3-4 days. Reports that last night while she was sitting at home she started to have diffuse intermittent upper & lower abdominal pain that she describes as feeling like contractions. Tried to rest but they persisted and continued to get stronger so she came to L&D for further evaluation. Endorses regular movement. Denies any associated fever but reports subjective chills as well as N/V/D. Reports ~3 episodes of emesis tonight and states she has had diarrhea with every BM for the last week. No known sick contacts/exposures. No vaginal bleeding/ d/c or LOF. No melena, hematochezia, mucoid, or foul-smelling stools. Grav: 6 Para: 5 ([id number]) OB History Details: #1-2--> term SVDs w/ GDM #3--> uncomplicated #4--> @ 34 WGA 2/2 labor #5--> @ ~36.4 WGA 2/2 labor Current complications: other (no PNC) Abnormal US findings: No Past Medical History: none Current medications: pre-bree vitamins Previous surgical history: none Allergies/Adverse Reactions: Allergies Allergy/AdvReac Type Severity Reaction Status Date / Time No Known Allergies Allergy Verified 09/13/18 08:45 Social history: none - Physical Exam Abnormal vital signs: HR 104 but BP & other vitals WNLs General: resting, breathing through contractions, other (mild distress 2/2 pain) Heart: RRR Lungs: CTAB Abdomen: gravid Extremeties: no edema FHT: variability present [place] contractions every: no regular contractions noted - Vaginal Exam cm dilated: 0 Effacement: 0% Station: -3 - OB Labs Blood type: A RH: positive Antibody Screen: negative GBS: unknown - Assessment 24YO @ unknown gestational age 2/2 no PNC who presented to L&D for evaluation for contractions. - Plan Plan: observation in L&D -: with abdominal pain, r/o labor: - No regular contractions noted on monitor but patient reports intermittent "contraction" pain. FHTs cat 1 with borderline baseline in the 150s & moderate variability but accels noted. SVE on presentation revealed a closed cervix. - VS show mild tachycardia in the 100s but are otherwise stable. - Will hydrate and checks routine labs as well as a sono to better establish possible GA & placentation and recheck in ~2-3 hours. - PRN zofran for N/V & will consider stadol for pain once US has been completed. IUP @ unknown GA: - Full standard OB US ordered as well as initial OB labs including a UDS, GC/ Chlamydia swab as well. h/o delivery x2: - Per chart review patient had an almost identical presentation with last delivery here ~1 year ago. - Will get a sono to better estimate GA but aware it is not totally reliable if > 22 weeks. No PNC: - Patient reports this was due to the fact that she only recently discovered she was due to regualr bleeding for the last several months. States she had trouble getting insurance which is why she has yet to see a physician this . - Will obtain a UDS as well as GC/chlamydia swab with routine labs. Dispo: Will continue to monitor closely on L&D with plans to PO hydrate & control pain & nausea with plans to recheck in ~2-3 hours and get initial labs & a baseline sono. Addendum - Attending - Attending Attestation Date/Time: 09/21/19 1183 I personally evaluated the patient and discussed the management with Dr. Gutierrez. I agree with the History, Examination, Assessment and Plan documented above.
[2019-09-21] MEDS ORDERED: Ondansetron ODT 4 MG TAB SL PRN (03:11)
[2019-09-21 04:41] LABS: ALT (SGPT) 9 U/L (8-55); AST (SGOT) 14 U/L (5-34); Albumin 3.7 g/dL (3.5-5.0); Alkaline Phosphatase 113 U/L (40-110); Anion Gap 11 mmol/L (10-20); BUN (Urea Nitrogen) 6 mg/dL (7.0-18.7); Bilirubin, Total 0.6 mg/dL (0.2-1.2); Calc. Creatinine Clearance 177 mL/min (70-130); Carbon Dioxide 22 mmol/L (22-29); Chloride 105 mmol/L (98-107); Estimated GFR-MDRD Greater than 90; Globulin 3.4 g/dL (2.4-3.5); Glucose 111 mg/dL (70-105); Potassium 3.4 mmol/L (3.5-5.1); Protein, Total 7.1 g/dL (6.0-8.3); Sodium 135 mmol/L (136-145)
[2019-09-21 04:55] LABS: Hemoglobin 11.9 g/dL (12.0-16.0); Mean Corpuscular HGB CONC 38.7 g/dL (32.0-36.0); Mean Corpuscular Hemoglobin 31.3 pg (27.0-31.0); Platelet Count 171 thou/uL (130-400); Red Blood Cell (RBC) Count 3.81 mill/uL (4.20-5.40); White Blood Cell (WBC) Count 12.9 thou/uL (4.8-10.8)
[2019-09-21 04:58] LABS: Bacteria/HPF None Seen HPF (None Seen); Bilirubin Negative (Negative); Blood, Urine Negative (Negative); Clarity Clear (Clear); Glucose, Urine (Dipstick) Normal (Negative); Leukocyte Negative Leu/uL (Negative); Nitrite Negative (Negative); Protein, Urine (Dipstick) 70 mg/dL (Neg-Trace); RBC/HPF 0-3 HPF (0-3); Squamous Epithelial 0-3 HPF (0-3)
[2019-09-21 04:59] LABS: HIV (1/2) Antibody/Antigen Non-Reactive (NonReactive); Hep B Surf Ag Non-Reactive S/CO (NonReactive)
[2019-09-21 05:16] LABS: Syphilis Antibody Nonreactive (Nonreactive); Syphilis Antibody Index 0.08 S/CO (<1.00 Non-Reactive)
--- NOTE | 2019-09-21 05:27 | PDOC.LDPN ---
Labor & Delivery Progress Note - Subjective Subjective: painful contractions - Objective Abnormal vital signs: HR still elevated at 105 but slightly improved; other vitals WNLs General: breathing through contractions, other (painful contractions) SVE: 3/60/-2 @ ~0544 [place] contractions every: 2-4 minutes Resuscitative measures: maternal IV fluids Plan: other -: 24YO @ estimated 36 WGA by sono done since admission w/ no PNC who presented to L&D for evaluation for contractions. with abdominal pain, r/o labor: - Contractions still irregular but patient alse reports persistent pain and is frequently removing monitors & getting up w/o notifying staff. FHTs cat 1 with baseline now down to the 140s with moderate variability & accels noted. SVE on presentation revealed a closed cervix but now dilated to 3/60/-1 @ 0544. - VS still show mild tachycardia in the 100s but are otherwise stable/WNLs. - Will continue PRN SL & IV zofran for N/V & PRN stadol for pain control since fetus appears stable & sono was WNLs. IUP @ unknown GA: - Full standard OB US revealed an estimated 36 week gestational age w/ EFW of 2614g, anterior placenta, normal HALEY & vertex presentation. h/o delivery x2: - Per chart review patient had an almost identical presentation with last delivery here ~1 year ago. - EGA by today's sono is 36 weeks but aware it is not totally reliable if > 22 weeks. No PNC: - Patient reports this was due to the fact that she only recently discovered she was due to regular bleeding for the last several months. States she had trouble getting insurance which is why she has yet to see a physician this . - UDS negative. GC/chlamydia swab pending. - All other IOB reviewed & WNLs but with patient being w/ an unknown GBS status will need intrapartum PPX on admission. Mild dehydration: - UA & CMP c/w decreased PO intake/dehydration w/ hypokalemia, hyponatremia & ketonuria. Will IV hydrate w/ LR @ 125mL/hr & continue PRN zofran for nausea. Dispo: Will admit to L&D for continued intrapartum management as patient appears to be in labor making adequate cervical tire changer time w/ more regular contractions.
[2019-09-21] MEDS ORDERED: Butorphanol Tartrate 1 MG/ML VIAL IM SCH (05:30)
[2019-09-21 05:48] LABS: Amphetamine Not Detected (NotDetected); Barbiturates Screen Not Detected (NotDetected); Benzodiazepine Screen Not Detected (NotDetected); Cocaine Metabolite Screen Not Detected (NotDetected); Medtox Control Line Valid? VALID (VALID); Medtox Reader # READER 4; Methadone Not Detected (NotDetected); Methamphetamine Not Detected (NotDetected); Opiate Screen Not Detected (NotDetected); Oxycodone Screen Not Detected (NotDetected); Phencyclidine (PCP) Not Detected (NotDetected); THC/Cannabinoid Screen Not Detected (NotDetected); Tricyclic Screen Not Detected (NotDetected)
[2019-09-21] MEDS: Lactated Ringer's 1,000 ML IV SCH ×3 (06:00→15:18)
[2019-09-21] MEDS ORDERED: Butorphanol Tartrate 1 MG/ML VIAL SLOW IVP SCH (06:15)
[2019-09-21] MEDS ORDERED: Butorphanol Tartrate 1 MG/ML VIAL SLOW IVP PRN (06:16)
[2019-09-21] MEDS ORDERED: Misoprostol 200 MCG TAB PR PRN (06:32)
[2019-09-21] MEDS ORDERED: Ondansetron PF 4 MG/2 ML Vial IVP PRN ×2 (06:32→10:42)
[2019-09-21] MEDS ORDERED: Methylergonovine 0.2 MG/ML VIAL IM PRN (06:32)
[2019-09-21] MEDS ORDERED: Lidocaine 1% (PF) 30 ML VIAL SC PRN (06:32)
[2019-09-21] MEDS ORDERED: Ibuprofen 800 MG TAB PO PRN (06:32)
[2019-09-21] MEDS ORDERED: NS / Oxytocin 40 units/1000ml 1,000 ML IV PRN (06:32)
[2019-09-21] MEDS ORDERED: Carboprost 250 MCG/ML AMP IM PRN (06:32)
[2019-09-21] MEDS ORDERED: Promethazine HCl 25 MG/ML VIAL IM PRN ×2 (06:32→10:42)
[2019-09-21] MEDS ORDERED: Penicillin G Potassium 5 MILL.UNITS in Sodium Chloride 0.9% 100 ML IVPB SCH (06:45)
[2019-09-21] MEDS: Betamet Acet/Betamet Na Ph 30 MG/5 ML VIAL IM SCH (07:38)
[2019-09-21] MEDS ORDERED: Fentanyl 4 mcg/Bup 0.1% Cadd 100 ML ONE (09:07)
--- NOTE | 2019-09-21 09:46 | PDOC.EVN ---
Event Note - Event Note Event Note: Received report from Dr. Canas. 24 yo multip with no PNC here with UCs. USG c/w 36 weeks, 2600+ gms, vtx. Started on steroids and ABX for GBS ppx. Last exam 3 cm. FHTs stable, irregular UCs seen. Will cont. present mgmt.
--- NOTE | 2019-09-21 09:47 | ULT ---
PRELIMINARY REPORT/[facility]/EMERGENCY AFTER HOURS PROCEDURE PROCEDURE INFORMATION: Exam: US , Limited Exam date and time: 09/21/2019 3:35 AM Age: 24 years old Clinical history: Pain; Other: Contractions, unknown dates; Gestational age or lmp: 36wks; TECHNIQUE: Imaging protocol: Real-time ultrasound of the maternal uterus with image documentation. Exam focused on the clinical indication. COMPARISON: No relevant prior studies available. FINDINGS: GESTATION: Gestation: Normal movement was observed by the pharmacy ancillary. Heart rate: heart rate 152 bpm. Presentation: Vertex. Placenta: The placenta is anterior. Amniotic fluid: HALEY 13.2 cm - within normal limits. Abdomen: bladder, kidneys, 4-chamber heart, stomach, 3-vessel cord, cord insertion and nose/lip s are visible. Spine: cervical, thoracic and lumbar spine is visible. BIOMETRY: Estimated weight: EFW 2614 g. Biparietal diameter: BPD 9.30 cm - 37w6d Head circumference: HC 32.37 cm - 36w4d Abdominal circumference: AC 29l92 cm - 33w6d Femur length: FL 7.04 cm - 36w1d IMPRESSION: Single live intrauterine gestation of 36w1d. SHANEL 10/18/2019. Thank you for allowing us to participate in the care of your patient. Dictated and Authenticated by: Elbert Fatima MD 09/21/2019 5:04 AM Central Time ([place] & [place]) FINAL REPORT LIMITED OBSTETRICAL ULTRASOUND: 09/21/2019 HISTORY: Contractions. Unknown dates. FINDINGS: I agree with the preliminary report. There is a single intrauterine gestation demonstrating a vertex presentation. heart rate is 152 beats per minute. Placenta is anterior with no evidence for previa or abruption. anatomy is no t assessed fully on this exam. Amniotic fluid index is 13.2 cm, within normal limits. BIOMETRY: BPD: 9.3 cm (37 weeks 6 days) HC: 32.4 cm (36 weeks 4 days) AC: 29.9 cm (33 weeks 6 days) FL: 7.0 cm (36 weeks 1 day) Averaged age based on ultrasound is 36 weeks 1 day. Estimated date of delivery if 10/18/2019. Estimat ed weight is 2614 g plus/minus 387 g. IMPRESSION: Single live intrauterine gestation as detailed above. CODE QA POS: [facility]
[2019-09-21] MEDS ORDERED: Bupivacaine 0.5% 10 ML VIAL ONE (09:57)
[2019-09-21] MEDS ORDERED: Fentanyl 100 MCG/2 ML VIAL ONE (09:57)
[2019-09-21] MEDS: Fentanyl 4 mcg/Bupivacaine 0.1% Cassette 100 ML EPIDURAL SCH ×2 (10:21→17:55)
[2019-09-21] MEDS ORDERED: Fentanyl 100 MCG/2 ML VIAL I-THECAL ONE (10:42)
[2019-09-21] MEDS ORDERED: Lactated Ringer's 500 ML IV PRN (10:42)
[2019-09-21] MEDS ORDERED: diphenhydrAMINE 50 MG/ML VIAL IVP PRN (10:42)
[2019-09-21] MEDS ORDERED: Naloxone HCl 0.4 mg/ml Vial IVP PRN ×2 (10:42)
[2019-09-21] MEDS ORDERED: Acetaminophen 325 MG TAB PO PRN (10:42)
[2019-09-21] MEDS ORDERED: ePHEDrine/0.9% NaCl/PF SYRINGE 50 mg/10 ml SLOW IVP PRN (10:42)
[2019-09-21] MEDS ORDERED: Bupivacaine 0.25% 10 ML VIAL EPIDURAL SCH (10:45)
[2019-09-21] MEDS ORDERED: Communication Order-Pharmacy FS SCH (10:45)
[2019-09-21] MEDS: Penicillin G 2.5 MILL.units 2.5 MILL.UNITS in Premix Bag 1 BAG IVPB SCH ×5 (11:37→23:16)
--- NOTE | 2019-09-21 18:29 | PDOC.LDPN ---
Labor & Delivery Progress Note - Subjective Subjective: comfortable - Objective Vital signs reviewed and normal: yes General: NAD Dilation: 5 Effacement: 75% Station: -2 FHT: category 1 [place] contractions every: 3 - Assessment (1) labor in third trimester Code(s): O60.03 - LABOR WITHOUT DELIVERY, THIRD TRIMESTER Current Visit: No Status: Acute Qualifiers: Fetus number: single or unspecified fetus Comment: Plan: continue plan of care (pt making slow change; pt to receive second dose of steroids in the am.) Addendum - Attending - Attending Attestation Date/Time: 09/21/19 5254 I personally evaluated the patient and discussed the management with Dr. Jackman. SVE 5 cm, epidural was placed 2* to pt. c/o pain. FHTs stable. UCs q 3-4 mins. Will continue to expectantly manage, 2nd dose of steroids due in early AM. I agree with the Examination, Assessment and Plan documented above.
[2019-09-21] MEDS ORDERED: FLU VACC QS2019-20(6MOS UP)/PF 60 MCG/0.5 ML SYRINGE IM ONE (21:00)
--- NOTE | 2019-09-21 21:39 | PDOC.EVN ---
Event Note - Event Note Event Note: Pt/ c/o pressure with epidural. SVE per Labor RN, SVE unchanged at 5 cm. FHTs stable, no decels. Ucs q 2-3 mins. Discussed epidural situation with Dr. Mancuso. Cont. expectant mgmt with epidural in place.
[2019-09-22] MEDS ORDERED: Fentanyl 4 mcg/Bup 0.1% Cadd 0 ML ONE (00:21)
[2019-09-22] MEDS: Lactated Ringer's 1,000 ML IV SCH ×2 (00:29→13:48)
[2019-09-22] MEDS: Fentanyl 4 mcg/Bupivacaine 0.1% Cassette 100 ML EPIDURAL SCH ×4 (00:29→21:41)
[2019-09-22] MEDS: Penicillin G 2.5 MILL.units 2.5 MILL.UNITS in Premix Bag 1 BAG IVPB SCH ×4 (03:32→16:29)
--- NOTE | 2019-09-22 06:17 | PDOC.EVN ---
Event Note - Event Note Event Note: Resting. VSS AF SVE by RN remains 5 cm, now with BBOW. FHTs stable. UCs remain q 5 mins. Continue Pen G, to get 2nd dose of steroids this AM.
[2019-09-22] MEDS: Betamet Acet/Betamet Na Ph 30 MG/5 ML VIAL IM SCH (07:57)
[2019-09-22] MEDS ORDERED: Fentanyl 4 mcg/Bup 0.1% Cadd 100 ML ONE ×4 (07:57→21:30)
[2019-09-22] MEDS ORDERED: Lactinex Tablet PO SCH (12:30)
[2019-09-22] MEDS ORDERED: Lactated Ringer's 1,000 ML IV SCH (18:44)
[2019-09-22] MEDS ORDERED: Penicillin G Potassium 5 MILL.UNITS VIAL ONE (21:20)
[2019-09-22] MEDS ORDERED: Penicillin G Potassium 5 MILL.UNITS in Sodium Chloride 0.9% 100 ML IVPB SCH (21:30)
[2019-09-22] MEDS ORDERED: Methylergonovine 0.2 MG/ML VIAL ONE (23:48)
[2019-09-22] MEDS ORDERED: Misoprostol 200 MCG TAB ONE (23:48)
[2019-09-23] MEDS ORDERED: Bisacodyl 10 MG SUPP PR PRN (01:45)
[2019-09-23] MEDS ORDERED: Milk Of Magnesia 30 ML UDCUP PO PRN (01:45)
[2019-09-23] MEDS ORDERED: NS / Oxytocin 40 units/1000ml 1,000 ML IV SCH (01:45)
[2019-09-23] MEDS ORDERED: hydrALAZINE 20 MG/ML VIAL SLOW IVP PRN (01:45)
[2019-09-23] MEDS ORDERED: Lanolin Ointment 7 GM TUBE TOP PRN (01:45)
--- NOTE | 2019-09-23 02:13 | DN ---
DATE OF PROCEDURE: 09/22/2019 Patient delivered a male at 36 weeks and 1 day on 09/22/2019 at 2350 hours by an uncomplicated spontaneous vaginal delivery. Apgars were nine and nine. Weight was 2290 g. Placenta delivered spontaneously followed by Pitocin infusion. There were no lacerations. Quantitative blood loss [address] De La Paz is the delivering physician. There were no lacerations. Counts were correct. Mother and baby are stable in the room in the immediate . Baby later was taken to the nursery for observation for retracting. Job ID: [id number]
[2019-09-23] MEDS: HYDROcodone/Acetaminophen 5/325 mg Tablet PO PRN ×3 (04:29→20:37)
[2019-09-23 04:53] LABS: #Lymphocytes 1.5 thou/uL (1.20-3.40); #Monocytes 1.2 thou/uL (0.11-0.59); #Neutrophils 11.6 thou/uL (1.40-6.50); %Basophils 0.3 % (0.0-1.0); %Eosinophils 0.1 % (0.0-10.0); %Lymphocytes 10.2 % (21.0-51.0); %Monocytes 8.2 % (0.0-10.0); %Neutrophils 81.1 % (42.0-75.0); Mean Corpuscular HGB CONC 35.9 g/dL (32.0-36.0); Mean Corpuscular Hemoglobin 28.9 pg (27.0-31.0); Mean Corpuscular Volume 80.4 fL (78.0-98.0); Mean Platelet Volume 7.5 fL (7.4-10.4); Platelet Count 154 thou/uL (130-400); RBC Distribution Width 12.2 % (11.5-14.5); Red Blood Cell (RBC) Count 3.11 mill/uL (4.20-5.40); White Blood Cell (WBC) Count 14.3 thou/uL (4.8-10.8)
[2019-09-23] MEDS: Prenatal Vitamin 1 TAB PO SCH (08:16)
[2019-09-23] MEDS: Ferrous Sulfate 325 MG TAB PO SCH ×2 (08:16→16:57)
[2019-09-23] MEDS: Docusate Calcium (SURFAK) 240 MG CAP PO SCH ×2 (08:16→20:37)
[2019-09-23] MEDS: Ibuprofen 800 MG TAB PO SCH ×2 (08:17→16:57)
--- NOTE | 2019-09-23 08:44 | PRG ---
DATE OF SERVICE: 09/23/2019 SUBJECTIVE: The patient is day 1, status post a spontaneous vaginal delivery. She reports she is tolerating p.o., voiding on her own, having decreased lochia and good pain control. Her baby is in the NICU for respiratory issues. OBJECTIVE: VITAL SIGNS: This morning; blood pressure is 112/62, temperature 98.6, pulse of 84, respiratory rate of 14, and saturating 96% on room air. GENERAL: She appears to be in no acute distress. She is alert and oriented, cooperative and pleasant to interact with. HEENT: Head is normocephalic and atraumatic. Fundus is firm. EXTREMITIES: Nontender, nonedematous. LABORATORY DATA: hemoglobin is 9.0, hematocrit 25.0, and platelets 154,000. ASSESSMENT AND PLAN: The patient is day 1, status post a spontaneous vaginal delivery. Her baby is in the NICU today. We will continue in-house care and anticipate discharge tomorrow. Job ID: [id number]
[2019-09-23] MEDS ORDERED: Lactinex Tablet PO SCH (09:00)
[2019-09-23] MEDS ORDERED: Adacel (T-DAP) 0.5 ML SYRINGE IM ONE (09:00)
[2019-09-24] MEDS: Ibuprofen 800 MG TAB PO SCH ×2 (00:46→09:59)
[2019-09-24] MEDS: HYDROcodone/Acetaminophen 5/325 mg Tablet PO PRN ×3 (00:52→10:01)
[2019-09-24 02:59] LABS: Chlamydia by PCR Not Detected (NotDetected); GC by PCR Not Detected (NotDetected)
--- NOTE | 2019-09-24 06:28 | PDOC.PP ---
Post Progress Note Post Day #: PPD 1.5 Subjective: Resting, c/o occasional cramping. PO intake tolerated: yes Flatus: yes Ambulation: yes Vital Signs (12 hours) Temp Pulse Resp BP Pulse Ox 09/24/19 00:46 98.1 F 82 16 99/51 L 09/23/19 20:37 97 09/23/19 19:57 98.8 F 81 16 112/72 97 Weight Weight 72.575 kg - Physical Examination General: NAD Respiratory: non-labored breathing Abdominal: no distention Neurological: no gross focal deficits Psychiatric: normal affect Result Diagrams: 09/23/19 04:28 09/21/19 04:07 Additional Labs: Post Labs Blood Type A POSITIVE 09/21/19 04:07 Hep Bs Antigen Non-Reactive S/CO (NonReactive) 09/21/19 04:02 Rubella IgG Antibody 1.53 index (Immune >0.99) 09/21/19 04:02 (1) labor in third trimester Code(s): O60.03 - LABOR WITHOUT DELIVERY, THIRD TRIMESTER Status: Acute Qualifiers: labor delivery status: with delivery in third trimester Fetus number: single or unspecified fetus Qualified Code(s): O60.14X0 - labor third trimester with delivery third trimester, not applicable or unspecified Comment: - Assessment/Plan Baby in NICU for O2 requirement. Routine PP care. Anticipate home tomorrow.
[2019-09-24 08:17] VITALS: BP 109/68; TEMP 98.5
[2019-09-24] MEDS: Ferrous Sulfate 325 MG TAB PO SCH (09:58)
[2019-09-24] MEDS: Prenatal Vitamin 1 TAB PO SCH (10:00)
[2019-09-24] MEDS: Docusate Calcium (SURFAK) 240 MG CAP PO SCH (10:04)
--- NOTE | 2019-09-24 15:41 | PDOC.EVN ---
Event Note - Event Note Event Note: ANGIE diamond selector Time: 1500 Contacted by RN in Requested [facility] home today Baby in NICU stable condition...delivery at 26 weeks I have reviewed the chart and vitals. No fever noted and no VB reported. OK for DC to home with Bed and Breakfast as possible. Patient of the PNC...has follow up
--- NOTE | 2019-09-26 00:50 | PQF ---
Francine Alex HECTOR [id number] CLINICAL DOCUMENTATION CLARIFICATION FORM: POST DISCHARGE Addendum to original discharge summary date: ____ Late entry note date: __ DATE: 09/26/19 ATTN: Derrick Oliver Please exercise your independent, professional judgment in responding to the clarification form. Clinical indicators are provided on the bottom of this form for your review Please check appropriate box(s): [x ] Acute blood loss anemia [ ] Post-op anemia related to acute blood loss [ ] Chronic Anemia: [ ] Blood loss [ ] Hemolytic [ ] Simple [ ] Due to Vitamin B12 Deficiency [ x ] Other __Anemia s/p vaginal birth [ ] Other diagnosis [ ] Unable to determine In addition, please specify: Present on Admission (POA): [ ] Yes [ x ] No [ ] Unable to determine For continuity of documentation, please document condition throughout progress notes and discharge summary. Thank You. CLINICAL INDICATORS - SIGNS / SYMPTOMS / LABS Laboratory Hematology 09/21 Hgb11.9, Hct 30.8 Laboratory Hematology 09/23 Hgb 9.0, Hct 25.0 Delivery Note p1 09/22 Quantitative blood loss 20ml [employer] Delivery Note p1 09/22 36 weeks and 1 day IUP Delivery Note p1 09/22 [place], Spontaneous Vaginal Delivery TREATMENTS: JAN 06 Ferrous Suldate 325mg BID, if hemoglobin <10gms Laboratory Hematology Monitoring (This form is maintained as a part of the permanent medical record) 2014 [employer]. All Rights Reserved [email or web address] [not provided] MTDD
== END 2019-09-24 17:45 | disposition home or self-care (01) | DRG 806 ==
LOC: L&D/OP 02:04 → L&D 06:48 → 3SW 09-23 02:43
PROVIDERS: ADMIT Family Medicine; ATTEND Family Medicine
PROC: 10E0XZZ Delivery of Products of Conception, External Approach (ICD-10-PCS; principal; 2019-09-22)
DX: O60.14X0 Preterm labor third trimester with preterm delivery third trimester, not applicable or unspecified (principal); E87.1 Hypo-osmolality and hyponatremia; Z37.0 Single live birth; D62 Acute posthemorrhagic anemia; Z3A.36 36 weeks gestation of pregnancy; O99.283 Endocrine, nutritional and metabolic diseases complicating pregnancy, third trimester; E86.0 Dehydration; E87.6 Hypokalemia; Z28.21 Immunization not carried out because of patient refusal; O90.81 Anemia of the puerperium
CPT/HCPCS: 36415; 51702; 76805; 80053; 80306; 81001; 85025; 85027; 86762; 86780; 86850; 86900; 86901; 87340; 87389; 87491; 87591; 99285; J0595; J0702; J2210; J2405; J2540; J3010; J3490; Q0162

== ENCOUNTER 2020-02-27 17:45 | Emergency (ER) | payer SELFPAY ==
[2020-02-27] MEDS ORDERED: Ketorolac Tromethamine 30 MG/ML VIAL ONE (19:34)
== END 2020-02-27 19:58 | disposition home or self-care (01) ==
LOC: ERS 17:45
DX: L73.2 Hidradenitis suppurativa (principal)
CPT/HCPCS: 96372; 99283; J1885

== ENCOUNTER 2020-08-25 14:42 | Emergency (ER) | payer MEDICAID, SELFPAY ==
[2020-08-25] MEDS ORDERED: Lidocaine 1% w/Epinephrine 1:100K 20 ML VIAL ONE (15:52)
[2020-08-25] MEDS ORDERED: Lidocaine 1% (PF) 30 ML VIAL ONE (15:53)
== END 2020-08-25 16:23 | disposition home or self-care (01) ==
LOC: ERS 14:42
DX: O99.712 Diseases of the skin and subcutaneous tissue complicating pregnancy, second trimester (principal); L02.415 Cutaneous abscess of right lower limb
CPT/HCPCS: 10060; J2001

== ENCOUNTER 2020-11-04 16:45 | Emergency (ER) | payer MEDICAID ==
[2020-11-04 17:34] LABS: Pregnancy Test - Urine (BHCG) Negative (Negative); Pregu Control Background? CLEAR/WHITE (CLR/WHITE); Pregu Control Bar Appear? YES (CONTROL BAR); Specific Gravity 1.027 (1.002-1.036)
[2020-11-04 17:37] LABS: Bacteria/HPF 3+ HPF (None Seen); Bilirubin Negative (Negative); Blood, Urine 1+ (Negative); Clarity Turbid (Clear); Glucose, Urine (Dipstick) Normal (Negative); Ketone, Urine Negative (Negative); Leukocyte 500 Leu/uL (Negative); Nitrite 2+ (Negative); Protein, Urine (Dipstick) 50 mg/dL (Neg-Trace); Renal Epithelial 0-3 HPF (None Seen); Specific Gravity, Urine 1.027 (1.002-1.036); Transitional Epithelial 0-3 HPF (None Seen); WBC/HPF Greater than 50 HPF (0-3); pH, Urine 5.5 (5.0-9.0)
== END 2020-11-04 18:14 | disposition home or self-care (01) ==
LOC: ERS 16:45
DX: N39.0 Urinary tract infection, site not specified (principal); L02.416 Cutaneous abscess of left lower limb
CPT/HCPCS: 81001; 81025; 87077; 87086; 87186; 99283

== ENCOUNTER 2021-09-12 12:50 | Emergency (ER) | payer MEDICAID, OTHER ==
[2021-09-12] MEDS ORDERED: Ketorolac Tromethamine 30 MG/ML VIAL ONE (13:40)
[2021-09-12 14:04] LABS: #Lymphocytes 2.1 thou/uL (1.20-3.40); #Monocytes 0.6 thou/uL (0.11-0.59); %Basophils 0.2 % (0.0-1.0); %Eosinophils 0.4 % (0.0-10.0); %Lymphocytes 24.4 % (21.0-51.0); %Monocytes 6.4 % (0.0-10.0); %Neutrophils 68.5 % (42.0-75.0); Hemoglobin 13.4 g/dL (12.0-16.0); Mean Corpuscular HGB CONC 35.9 g/dL (32.0-36.0); Mean Corpuscular Hemoglobin 28.6 pg (27.0-31.0); Mean Corpuscular Volume 79.6 fL (78.0-98.0); Mean Platelet Volume 8.5 fL (7.4-10.4); Platelet Count 246 thou/uL (130-400); RBC Distribution Width 13.2 % (11.5-14.5); Red Blood Cell (RBC) Count 4.67 mill/uL (4.20-5.40); White Blood Cell (WBC) Count 8.7 thou/uL (4.8-10.8)
[2021-09-12 14:20] LABS: ALT (SGPT) 8 U/L (8-55); AST (SGOT) 14 U/L (5-34); Albumin 4.7 g/dL (3.5-5.0); Alkaline Phosphatase 76 U/L (40-110); Anion Gap 16 mmol/L (10-20); BUN (Urea Nitrogen) 8 mg/dL (7.0-18.7); Bilirubin, Total 0.6 mg/dL (0.2-1.2); Calc. Creatinine Clearance 0 mL/min (70-130); Calcium 10.4 mg/dL (7.8-10.44); Carbon Dioxide 19 mmol/L (22-29); Chloride 104 mmol/L (98-107); Globulin 3.5 g/dL (2.4-3.5); Glucose 106 mg/dL (70-105); Magnesium 1.8 mg/dL (1.6-2.6); Protein, Total 8.2 g/dL (6.0-8.3); Sodium 135 mmol/L (136-145)
== END 2021-09-12 17:20 | disposition home or self-care (01) ==
LOC: ERS 12:50
DX: R07.89 Other chest pain (principal); R06.02 Shortness of breath
CPT/HCPCS: 36415; 71045; 80053; 83735; 84484; 85025; 93005; 96374; J1885